=== PATIENT | male | born 2005 | race Caucasian/White ===

== ENCOUNTER 2024-12-18 17:31 | Emergency (ER) | payer OTHER, BC, SELFPAY ==
--- NOTE | ~2024-12-18 | XR_ITS ---
EXAMINATION: XR tibia fibula RT 2V, 12/18/2024 17:51 CDT HISTORY: R lower extemity injury COMPARISON: No comparisons available. Findings: No acute fracture or malalignment. No significant degenerative changes. Soft tissues unremarkable. Impression: No acute fracture or malalignment. Reviewed, dictated and finalized at location P. Impression: No acute fracture or malalignment.
[2024-12-18 17:40] VITALS: BP 107/81; PULSE 91; RESP 16; TEMP 36.6; O2SAT 100
--- NOTE | 2024-12-18 18:24 | ED.WOUNDLAC ---
HPI - Wound/Laceration General Chief Complaint: Wound/Laceration Stated Complaint: R delacruz lac Time Seen by Provider: 12/18/24 17:34 History of Present Illness HPI narrative: Patient is a 19-year-old female who presents to the ER after falling off a combine. He reports he landed on a steel block, which sliced his right anterior calf. Patient is unsure when he last had a tetanus vaccine. He denies any other medical history relevant to this ER visit. Patient denies any calf pain, purulent drainage from the site, or excessive redness/swelling. Related Data Allergies Allergy/AdvReac Type Severity Reaction Status Date / Time No Known Allergies Allergy Verified 12/18/24 17:32 Review of Systems Review of Systems: All systems reviewed & are unremarkable except as noted in HPI and below Exam Narrative: GENERAL: Well appearing, well-nourished, non-toxic, in no acute distress. HEAD: Normocephalic, atraumatic. NECK: Supple. No adenopathy, no masses. RESPIRATORY: Airway patent, respirations nonlabored. Clear to auscultation bilaterally, no rales, rhonchi, wheezing. CARDIOVASCULAR: Regular rate and rhythm without murmurs, rubs, or gallops. Peripheral pulses 2+ and equal bilaterally. ABDOMINAL: Soft, nontender, nondistended, no hepatosplenomegaly. Normoactive BS. MUSCULOSKELETAL: Moves all extremities. Strength/ROM intact without gross deformities. SKIN: Warm, dry, normal color. No rashes. Approximately 2 in long linear laceration to right anterior leg. NEURO: A&O X3. Speech clear. Cranial nerves II-XII intact. No ataxic movements. PSYCHIATRIC: Appropriate mood and affect. Normal interaction. Course Vital Signs Vital signs: Vital Signs Temperature 36.6 C 12/18/24 17:40 Pulse Rate 91 12/18/24 17:40 Respiratory Rate 16 12/18/24 17:40 Blood Pressure 107/81 12/18/24 17:40 Pulse Oximetry 100 12/18/24 17:40 Oxygen Delivery Room Air 12/18/24 17:40 Temperature 36.6 C 12/18/24 17:40 Pulse Rate 91 12/18/24 17:40 Respiratory Rate 16 12/18/24 17:40 Blood Pressure 107/81 12/18/24 17:40 Pulse Oximetry 100 12/18/24 17:40 Oxygen Delivery Room Air 12/18/24 17:40 Procedures Laceration Laceration 1: Date: 12/18/24 Time: 20:12 Site: lower extremity Side (If applicable): right Size (cm): 7 Description: linear Depth: involves muscle layer Local Anesthetic: lidocaine 1% and with epi Amount of anesthesia used (mL): 10 Pre-repair: wound explored and irrigated extensively ====== Skin Level ====== Skin layer closed with: nylon Size (cm): 3-0 Number of sutures: 9 Technique: simple, interrupted ====== Subcutaneous Layer ====== ====== Muscle Layer ====== ====== Tendon Layer ====== MDM - Wound/Laceration MDM Narrative Medical decision making narrative: Patient is a 19-year-old female who presents to the ER after falling off a combine. He reports he landed on a steel block, which sliced his right anterior calf. Patient is unsure when he last had a tetanus vaccine. He denies any other medical history relevant to this ER visit. Patient denies any calf pain, purulent drainage from the site, or excessive redness/swelling. Imaging Ordered: Right tib-fib x-ray Medications Ordered: Lidocaine with epinephrine infiltrate, Tdap IM Results: Patient's x-ray indicates no acute osseous abnormalities. Diagnosis: Right lower extremity laceration Patient Education/Shared MDM: Patient presented to ED after sustaining a laceration to his R lower extremity. Vital signs stable upon arrival. No LOC. No other injuries. No active bleeding upon my evaluation. Pt's Tdap vaccine administered here in the ER. R tib/fib x-ray obtained and negative for acute findings. Lidocaine with epi was used with adequate anesthesia. Laceration was repaired with 9 sutures without complications. Patient was given wound care instructions and advised to follow-up with primary care doctor in the next 2-3 days for wound check. He should have his sutures removed in 10-14 days. Pt was given reasons to return to the ED. All questions answered. Vital signs stable at time of discharge. Differential Diagnosis Differential diagnosis: Likely laceration, abscess, abrasion and avulsion of skin Imaging Data Attestation: I personally reviewed and interpreted this imaging study as follows: Radiologist's impression: Impressions Tibia/Fibula X-Ray 12/18/24 18:03 Impression: No acute fracture or malalignment. Discharge Plan Discharge Clinical Impression: Laceration Patient Disposition: Home Condition: Stable Instructions: Antibiotic Form, Care For Your Stitches (ED), Laceration (ED) Additional Instructions: Please return to the ER with any worsening symptoms. Follow-up with primary care provider in the next 2-3 days to ensure your wound is healing appropriately. You may take Tylenol and ibuprofen as needed for pain control. Please keep the wound covered with a nonadherent dressing. You may have the sutures removed in 10 to 14 days. Patient Language: Sinhala Follow-up/Referrals: Bobby Early MD [Physician, Family Practice] Referral Note: primary care PHYSICIAN NOT ON STAFF,NONSTAFF [Primary Care Provider] Stand Alone Forms: Work/School Release IP Time of Disposition: 20:17
[2024-12-18] MEDS: TETANUS,DIPHTHERIA,AC PERTUSSIS ADULT (0.5 ML) BOOSTRIX IM (18:36)
[2024-12-18 20:25] VITALS: BP 124/86; PULSE 77; RESP 16; O2SAT 100
--- OUTSIDE RECORDS SUMMARY | 2024-12-18 20:25 | XMS_ITS | Clinical Summary ---
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 Gender Identity Not on file Sexual Orientation Not on file Plan of Treatment Health Maintenance Due Date Last Done Comments Annual Physical 06/08/2006 HPV Vaccines (1 - Male 3-dos e series) 06/08/2018 Meningococcal B Vaccine (1 o f 2 - Standard) 2019 Hepatitis C 06/08/2021 DTaP, Tdap and Td Vaccines ( 1 - Tdap) 06/08/2022 Hepatitis B Vaccines (1 of 3 - 19+ 3-dose series) 06/08/2022 COVID-19 Vaccine (1 - 2023-2 5 season) 2024 Influenza Adult (#1) 2024 Meningococcal Vaccine Aged Out No davy china eligible based on patient's age to complete this topic Pneumococcal Vaccine: Pediat rics (0 to 5 Years) and At-Risk Patients (6 to 49 Years) Aged Out No longer eligible b ased on patient's age to complete this topic RSV Immunizations Under 20 Months Aged Out No longer eligible based on patient's age to complete this topic
== END 2024-12-18 20:26 | disposition home or self-care (01) ==
PROVIDERS: Emergency Provider Registered Nurse
DX: S81.811A Laceration without foreign body, right lower leg, initial encounter (principal); V84.4XXA Person injured while boarding or alighting from special agricultural vehicle, initial encounter; Z23 Encounter for immunization
CPT/HCPCS: 12001; 73590; 90471; 90715; 99283